=== PATIENT | male | born 1995 | race Caucasian/White ===

== ENCOUNTER 2024-04-15 13:40 | Emergency (ER) | payer BC ==
[~2024-04-15] VITALS: Ht 1920 cm; Wt 99.0 kg
[2024-04-15 14:21] LABS: BASO % 0.5 % (0.0-1.0); EOS # 0.2 10*3/uL (0.0-0.4); EOS % 3.1 % (1.0-4.0); HEMATOCRIT 47.9 % (42.0-52.0); MEAN CELL VOLUME 92.3 fl (80.0-94.0); MEAN CORPUSCULAR HGB 29.9 pg (27.0-31.0); MEAN CORPUSCULAR HGB CONC 32.4 g/dl (33.0-37.0); MEAN PLATELET VOLUME 9.1 fl (9.6-12.3); MONO # 0.6 10*3/uL (0.1-1.0); MONO % 9.5 % (3.0-9.0); NEUT # 4.9 10*3/uL (2.3-7.9); NEUT % 76.4 % (47.0-73.0); PLATELET COUNT AUTOMATED 229 10*3/uL (130-400); RED BLOOD COUNT 5.19 10*6/uL (4.50-5.90); WHITE BLOOD COUNT 6.4 10*3/uL (4.8-10.8)
[2024-04-15 14:37] LABS: BUN 12 mg/dl (9-23); CHLORIDE 102 mmol/L (98-107); POTASSIUM 4.5 mmol/L (3.4-5.1)
== END 2024-04-15 15:39 | disposition home or self-care (01) ==
LOC: ED 13:40
PROVIDERS: Physician Assistant Medical
DX: B34.9 Viral infection, unspecified (principal); Z20.822 Contact with and (suspected) exposure to COVID-19; R11.0 Nausea